=== PATIENT | male | born 1985 | race Caucasian/White ===

== ENCOUNTER 2020-07-03 20:48 | Emergency (ER) | payer OTHER, SELFPAY ==
[2020-07-03 20:55] VITALS: BP 136/80; BP 170/90; PULSE 63; PULSE 80; RESP 18; TEMP 37.1; O2SAT 97; BMI 32.9
--- NOTE | 2020-07-03 21:09 | ED.ALCOHOL ---
HPI - Alcohol General Chief Complaint: ETOH/Substance Use Stated Complaint: SUBSTANCE ABUSE Time Seen by Provider: 07/03/20 21:08 Source: patient Mode of arrival: EMS Limitations: no limitations History of Present Illness HPI narrative: This is a 34-year-old male who is brought in by EMS after they and [employer] were called by the brother for concerns that the patient was going to come over to his house after having been kicked out. As per EMS the patient was noncooperative and fidgeting, however here at the emergency department there have been no concerns. Patient states that he drink alcohol and smoke some weed but denies use of any other drugs, specifically cocaine/heroin/PCP. Patient denies being depressed, or having thoughts of wanting the kill himself or harm anyone else. Review of Systems Review of Systems: Pertinent positives and negatives as stated in HPI and 10 point review of systems otherwise negative. PMFSH Past Medical History Source: nursing notes reviewed Social History Social History Advance Directives: No Advance Directives Information Provided: Yes Physical Exam Vital Signs: Vital Signs: Last Vital Signs Temp 98.7 F 07/03/20 20:55 Pulse 63 07/03/20 20:55 Resp 18 07/03/20 20:55 BP 136/80 07/03/20 20:55 Pulse Ox 97 07/03/20 20:55 Body Mass Index 32.9 VITAL SIGNS: Reviewed. GENERAL: Well developed, well nourished, in no acute distress. HEAD: Normocephalic/atraumatic, EYES: PERRLA, EOMI intact without pain, no nystagmus/pallor/icterus noted EARS: Ext canals without abnormality, TMs non-bulging and non-erythematous NOSE: Nares patent bilateral OROPHARYNX: no oral lesions noted, posterior pharynx clear and non-erythematous without noted tonsillar enlargement/erythema/exudates NECK: Supple, no adenopathy LUNGS: Normal breath sounds. No adventitious sounds or accessory muscle use. SpO2<97> CARDIOVASCULAR: Regular rate and rhythm without noted murmurs, no JVD or lower extremity edema. ABDOMEN: Soft, non-tender, non-distended with bowel sounds. No rigidity. No guarding. No palpable masses or hernias noted MUSCULOSKELETAL: No tenderness, deformities, or effusions noted on gross inspection. EXTREMITIES: No cyanosis, clubbing or edema. SKIN: Inspection of the skin reveals no rashes, ulcerations, jaundice, pallor, or petechiae. NEUROLOGIC: Alert and oriented x 3. Strength and sensation to light touch were grossly intact x 4, steady gait Course Course Course Narrative: This is a 34-year-old male with history and clinical presentation of substance use, alert and oriented, steady gait, however after speaking with the patient's brother he again states he will not come and pick the patient up as he has concerns about the patient being around his 2-year-old while the patient is under the influence. Patient wishes to leave and is otherwise medically cleared to do so, however we are attempting to find a safe ride for patient to return to his home. In the event this is not possible [employer] will be contacted to pick the patient up as there is no medical reason for the patient to be here he is not a harm to himself or others. On re-evaluation the patient is noted to be calm, cooperative, steady gait, alert and oriented x4 and stable for discharge and understands that he will not be able to go to his brother's house and that if he does so his brother is likely to call the police department. He acknowledges understanding of this and will be discharged in stable condition after eating and drinking food Discharge Plan Discharge Clinical Impression: Substance abuse Patient Disposition: Home, Self-Care Instructions: Cannabis Abuse (ED) Additional Instructions: The patient and/or family acknowledge understanding of results (as applicable), diagnosis, treatment plan, need for follow up, and symptoms that should prompt a return to the emergency room.
--- NOTE | 2020-07-03 21:20 | PC.NURSE ---
THIS RN ATTEMPTED TO CALL PATIENT'S BROTHER (SHAYNA) AT [phone]. SHAYNA REFUSES TO TREE INSPECTOR THIS PATIENT, STATES I CAN'T HAVE HIM AROUND MY 2 YEAR OLD DAUGHTER, THAT'S WHY I CALLED THE POLICE. HE HAS HIS OWN PLACE IN [place] . SHAYNA ATTEMPTING TO CALL/PROVIDE RIDE (SUCH UBER/LIFE/ALTERNATE FAMILY MEMBER) FOR THE PATIENT, AND INSTRUCTED TO CALL THIS RN BACK WHEN ABLE TO PROVIDE A SAFE RIDE FOR PATIENT. WHEN THIS RN TOLD THE PATIENT THIS, PATIENT UPSET BUT COOPERATIVE, STATING I'LL JUST WALK TO MY BROTHER'S HOUSE. I'M FINE. THIS RN INSTRUCTED PATIENT TO REMAIN IN ED UNTIL SAFE RIDE ARRIVES. PATIENT REMAINS UPSET, STATES I JUST WANNA GO MAN. GIVE ME MY STUFF BACK! MARY JUST WALK OUT AND GO! AMBULATING WITH STEADY GAIT IN ROOM 6. OKAY WITH DISCHARGE.
--- NOTE | 2020-07-03 22:22 | PC.NURSE ---
PREPARING FOR DISCHARGE HOME. AMBULATING WITH STEADY GAIT AROUND ED, ABLE TO SPEAK IN CLEAR FULL SENTENCES, AMBULATED TO BATHROOM AND BACK WITHOUT ISSUE. THIS RN SPOKE WITH [employer], AND PATIENT'S BROTHER (SHAYNA), AND AWARE OF DISCHARGE PLAN AND MEDICAL CLEARANCE. AWAITING DISCHARGE PAPERWORK.
== END 2020-07-03 22:35 | disposition home or self-care (01) ==
LOC: HO.ED 22:16
PROVIDERS: Emergency Provider Student in an Organized Health Care Education/Training Program
DX: F12.10 Cannabis abuse, uncomplicated (principal)
CPT/HCPCS: 99283

== ENCOUNTER 2025-04-27 03:35 | Emergency (ER) | payer OTHER, SELFPAY | END 2025-04-27 03:59 | PROVIDERS: Emergency Provider Emergency Medicine | DX: F10.129 Alcohol abuse with intoxication, unspecified (principal) | CPT/HCPCS: 99284 ==